=== PATIENT | male | born 1930 | race Caucasian/White ===

== ENCOUNTER → 2018-03-12 | Outpatient (CLI) | payer MEDICARE ==
--- NOTE | 2018-03-12 18:37 | CT ---
EXAMINATION TYPE: CT abdomen pelvis wo con DATE OF EXAM: 03/12/2018 HISTORY: Weakness, fatigue, jaundice, and weight loss x 6 weeks +. CT DLP: 983 mGycm. Automated Exposure Control for Dose Reduction was Utilized. TECHNIQUE: CT scan of the abdomen and pelvis is performed without oral or IV contrast. COMPARISON: NONE FINDINGS: Within the limitations of a non-contrast study, the following observations are made. LUNG BASES: Dependent atelectasis is present bilaterally. There is additional peripheral fibrosis and scarring. LIVER/GB: Gallbladder is dilated with distended peripheral margins. There are no CT dense intralumina l gallstones dependently. There is no surrounding inflammatory change. There is mild to moderate cent ral intrahepatic and extrahepatic biliary dilatation without obvious obstructing mass. There is poor visualization of the common bile duct periampullary level. There is abrupt cut off seen near coronal image 35 PANCREAS: No significant abnormality is seen. No pancreatic dilatation is noted. SPLEEN: There is 1.3 cm splenule inferior lateral to the spleen. ADRENALS: No significant abnormality is seen. KIDNEYS: A few rounded low dense lesions throughout both kidneys are felt to reflect simple cysts. Ce ntral calcification is favored vascular. BOWEL: There is some redundant sigmoid colon. There are scattered diverticula throughout the colon mo st prominent in the sigmoid colon. There is no CT evidence for acute diverticulitis. Suspect a few sm all diverticula in the duodenal sweep for reference mesenteric third portion coronal image 41. GENITAL ORGANS: Central zone calcification is seen in normal size prostate. LYMPH NODES: No greater than 1cm abdominal or pelvic lymph nodes are appreciated. OSSEOUS STRUCTURES: Spine is straightened on sagittal images. There is sclerosis and spurring inferio r right L2 level. Posterior spur effaces anterior thecal sac at L2-L3 level sagittal image 40. There is moderate disc space narrowing L5-S1 level. Multilevel facet arthropathy is present most prominent in lower lumbar levels. There is spurring in both sacroiliac joints superiorly. There is moderate to advanced joint space loss in both hip joints. OTHER: Moderate to severe atherosclerotic change of aorta extends into branch vessels. IMPRESSION: Mild to moderate biliary dilatation without obstructing mass or calculus clearly seen. Fu rther investigation with ERCP advised to exclude malignancy or stricture.
== END | disposition home or self-care (01) ==
LOC: RADCTMAIN 16:13
PROVIDERS: ATTEND Family Medicine
DX: K83.8 Other specified diseases of biliary tract (principal)
CPT/HCPCS: 74176